=== PATIENT | male | born 1985 | race Hispanic/Latino ===

== ENCOUNTER 2017-09-10 09:50 | Emergency (ER) | payer OTHER ==
--- OUTSIDE RECORDS SUMMARY | 2017-09-10 09:52 | XMS REPORT | Clinical Summary ---
:1985 Author Organization [facility] Address [address] [place] [address] Phone Care Team Providers Name Role Phone Unavailable Primary Care Provider Unavailable Allergies No Known Allergies Current Medications No known medications Active Problems Problem Noted Date Bucket handle tear of lateral meniscus of right knee 12/28/2016 Primary localized osteoarthritis of right knee 12/28/2016 Encounters Date Type Specialty Care Team Description 02/16/2017 Hospital Encounter Taiwo Gonzalez MD 12/28/2016 Hospital Encounter Taiwo Gonzalez MD 12/28/2016 Procedure Pass 12/28/2016 Surgery Taiwo Gonzalez ARTHROSCOPY,KNEE MD Joshua MENISCECTOMY 12/27/2016 Anesthesia Event Mat Mobley MD 11/30/2016 Procedure Pass 11/30/2016 Surgery Taiwo Gonzalez ARTHROSCOPYWALTER MD MENISCECTOMY after 09/09/2016 Social History Tobacco Use Types Packs/Day Years Used Date Never Smoker Smokeless Tobacco: Never Used Alcohol Use Drinks/Week oz/Week Comments Yes occasiona; Sex Assigned at Date Recorded Not on file Last Filed Vital Signs Vital Sign Reading Time Taken Blood Pressure 136/65 12/28/2016 9:55 AM CDT Pulse 111 12/28/2016 9:55 AM CDT Temperature 36.3 C (97.4 F) 12/28/2016 9:55 AM CDT Respiratory Rate 18 12/28/2016 9:55 AM CDT Oxygen Saturation 97% 12/28/2016 9:55 AM CDT Inhaled Oxygen Concentration - - Weight 107.5 kg (237 lb) 12/28/2016 6:41 AM CDT Height 180.3 cm (5' 11") 12/28/2016 6:41 AM CDT Body Mass Index 33.05 12/28/2016 6:41 AM CDT Plan of Treatment Not on file Procedures Procedure Name Priority Date/Time Associated Diagnosis Comments ARTHROSCOPY,KNEE 12/28/2016 9:20 AM Primary osteoarthritis of SYNOVECTOMY CDT right knee Special Needs (ARTHREX) ARTHROSCOPY,KNEE CHONDROPLASTY 12/28/2016 9:20 AM CDT Primary osteoarthritis of SHAVING right knee Special Needs (ARTHREX) ARTHROSCOPY,KNEE LOOSE/FOREIGN 12/28/2016 9:20 AM CDT Primary osteoarthritis of BODY right knee Special Needs (ARTHREX) ARTHROSCOPY,KNEE MENISCECTOMY 12/28/2016 9:20 AM CDT Primary osteoarthritis of right knee Special Needs (ARTHREX) after 09/09/2016 Results Not on fileafter 09/09/2016
[2017-09-10] MEDS ORDERED: TETRACAINE HCL 0.5% 2ML OPTH ONE (10:32)
[2017-09-10] MEDS ORDERED: FLUORESCEIN SODIUM 0.6 MG/WRAP ONE ×2 (10:32→11:08)
--- NOTE | 2017-09-10 11:23 | ER ---
Nurse's Notes [facility] Name: Huber Gibbs Age: 31 yrs Sex: Male : 1985 Arrival Date: 09/10/2017 Time: 09:54 Bed 13 Private MD: Ty Garvey R Diagnosis: Conjunctivitis-Allergic Presentation: 09/10 10:10 Presenting complaint: Patient states: Bilateral eye burning and itching after dust fell hb down while moving ceiling tiles yesterday. Transition of care: patient was not received from another setting of care. Onset of symptoms was September 09, 2017. Risk Assessment: Do you want to hurt yourself or someone else? Patient reports no desire to harm self or others. Initial Sepsis Screen: Does the patient meet any 2 criteria? No. Patient's initial sepsis screen is negative. Does the patient have a suspected source of infection? No. Patient's initial sepsis screen is negative. Care prior to arrival: None. 10:10 Method Of Arrival: Ambulatory hb 10:10 Acuity: LILY 4 hb Historical: - Allergies: 10:12 No Known Allergies; hb - Home Meds: 10:12 None [Active]; hb - PMHx: 10:12 None; hb - PSHx: 10:12 knee - right; hb - Immunization history:: Adult Immunizations up to date. - Social history:: Smoking status: Patient/guardian denies using tobacco. - Ebola Screening: : No symptoms or risks identified at this time. Screenin:36 Abuse screen: Denies threats or abuse. Denies injuries from another. Nutritional aj1 screening: No deficits noted. Tuberculosis screening: No symptoms or risk factors identified. 12:14 Fall Risk None identified. aj1 Assessment: 10:36 General: Appears in no apparent distress. comfortable, Behavior is calm, cooperative, aj1 appropriate for age. Pain: Complains of pain in right eye and left eye Quality of pain is described as burning. Neuro: Level of Consciousness is awake, alert, obeys commands, Oriented to person, place, time, situation. Cardiovascular: Patient's skin is warm and dry. Respiratory: Airway is patent Respiratory effort is even, unlabored, Respiratory pattern is regular, symmetrical. GI: No signs and/or symptoms were reported involving the gastrointestinal system. : No signs and/or symptoms were reported regarding the genitourinary system. EENT: Sclera/Cornea are reddened in outer aspect of conjuctiva of right eye, inner aspect of conjuctiva of right eye, outer aspect of conjuctiva of left eye and inner aspect of conjunctiva of left eye Reports eye pain to bilateral eyes. Derm: No signs and/or symptoms reported regarding the dermatologic system. Skin is pink, warm \T\ dry. normal. Musculoskeletal: No signs and/or symptoms reported regarding the musculoskeletal system. Circulation, motion, and sensation intact. 11:40 Reassessment: Patient appears in no apparent distress at this time. No changes from aj1 previously documented assessment. Patient and/or family updated on plan of care and expected duration. Pain level reassessed. Patient is alert, oriented x 3, equal unlabored respirations, skin warm/dry/pink. 12:12 Reassessment: Patient got approximately 100cc in NS flush with Delroy Lens when he said aj1 that he does not like it and would like to stop. Patient was offered to re-numb eye and try again but patient declines. Notified GERALD Garber. OK to discharge patient. Vital Signs: 10:11 BP 146 / 69; Pulse 66; Resp 16; Temp 98.2; Pulse Ox 100% on R/A; Weight 112.49 kg; hb Height 5 ft. 11 in. (180.34 cm); Pain 7/10; 10:11 Body Mass Index 34.59 (112.49 kg, 180.34 cm) hb Visual Acuity: 10:35 Left Eye Visual acuity 20/20, ; Right Eye Visual acuity 20/60, ; Without Lenses; aj1 Patient states that he always has poor vision in the right eye, he is suppose to wear glasses, but doesn't. States his vision appears to be within his normal ED Course: 09:54 Patient arrived in ED. mr 09:54 None, None is Private Physician. mr 09:54 Ty Garvey MD is Private Physician. mr 10:11 Triage completed. hb 10:12 Arm band placed on left wrist. hb 10:14 Tiago Danielson PA is PHCP. cp 10:15 Tiago Gurrola MD is Attending Physician. cp 10:16 Miriam Sharp, STEVE is Primary Nurse. hb 10:36 Patient has correct armband on for positive identification. Bed in low position. Call aj1 light in reach. Side rails up X 1. 10:36 No provider procedures requiring assistance completed. aj1 11:21 Oscar Whalen MD is Referral Physician. cp 12:15 Patient did not have IV access during this emergency room visit. aj1 Administered Medications: 11:15 Drug: Tetracaine Drops 0.5 % 1 drops {Note: by GERALD Garber.} Route: Ophthalmic; Site: [facility] both eyes; 12:19 Follow up: Response: No adverse reaction aj1 Outcome: 11:23 Discharge ordered by MD. cp 12:18 Discharged to home ambulatory. aj1 12:18 Condition: good 12:18 Discharge instructions given to patient, Instructed on discharge instructions, follow up and referral plans. medication usage, Demonstrated understanding of instructions, follow-up care, medications, Prescriptions given X 2. 12:20 Patient left the ED. aj1 Signatures: Amelia Smith, RN RN aj1 Richelle Katz Corey, PA PA cp Miriam Sharp RN RN hb
--- NOTE | 2017-09-10 11:23 | EDPHYS ---
Physician Documentation [facility] Name: Huber Gibbs Age: 31 yrs Sex: Male : 1985 Arrival Date: 09/10/2017 Time: 09:54 Bed 13 Private MD: Ty Garvey R ED Physician Tiago Gurrola HPI: 09/10 10:21 This 31 yrs old Male presents to ER via Ambulatory with complaints of Redness cp of Eye. 10:21 The patient is experiencing redness, burning pain, clear drainage. Onset: The cp symptoms/episode began/occurred this morning. Duration: the symptoms are continuous. Patient does not utilize any form of vision correction. 10:21 Patient reports he was moving ceiling tiles at work yesterday when he felt like dust cp got into left eye. Left eye started itching and became red with right eye now affected this morning. Denies use of contact lenses. Historical: - Allergies: 10:12 No Known Allergies; hb - Home Meds: 10:12 None [Active]; hb - PMHx: 10:12 None; hb - PSHx: 10:12 knee - right; hb - Immunization history:: Adult Immunizations up to date. - Social history:: Smoking status: Patient/guardian denies using tobacco. - Ebola Screening: : No symptoms or risks identified at this time. ROS: 10:25 Constitutional: Negative for body aches, chills, fever, poor PO intake. cp 10:25 Cardiovascular: Negative for chest pain, palpitations, and edema, Respiratory: Negative cp for shortness of breath, cough, wheezing, and pleuritic chest pain, Abdomen/GI: Negative for abdominal pain, nausea, vomiting, diarrhea, and constipation. 10:25 Eyes: Positive for foreign body sensation, itching, redness, of the left eye and right eye, clear drainage, Negative for visual disturbance. 10:25 ENT: Negative for drainage from ear(s), ear pain, sore throat, difficulty swallowing, difficulty handling secretions, hoarseness. 10:25 Neck: Negative for pain with movement, pain at rest, stiffness, swelling, swollen nodes, tenderness. 10:25 Skin: Negative for cellulitis, rash. 10:25 Neuro: Negative for altered mental status, headache, weakness. 10:25 All other systems are negative. Exam: 11:00 Visual Acuity: I have reviewed the nursing documentation. cp 11:00 Constitutional: This is a well developed, well nourished patient who is awake, alert, cp and in no acute distress. Head/Face: Normocephalic, atraumatic. 11:00 Eyes: Periorbital structures: appear normal, Pupils: equal, round, and reactive to light and accomodation, Extraocular movements: intact throughout, Conjunctiva: mild injected. Corneas: abrasion, is not appreciated, foreign body, is not appreciated, a fluorescein strip employed to appreciate the findings, Sclera: no appreciated abnormality, Anterior chamber: normal, Lids and lashes: appear normal, bilaterally, Visual ayers: are intact. 11:00 ENT: External ear(s): are unremarkable, Ear canal(s): are normal, clear, TM's: Nose: is normal, Mouth: Lips: moist, Oral mucosa: pink and intact, moist, Posterior pharynx: is normal, airway is patent, no erythema, no exudate, Voice: is normal. 11:00 Neck: ROM/movement: is normal, is supple, without pain, no range of motions limitations, no meningismus, no nuchal rigidity, Lymph nodes: no appreciated lymphadenopathy. 11:00 Chest/axilla: Inspection: normal, Palpation: is normal, no crepitus, no tenderness. 11:00 Cardiovascular: Rate: normal, Rhythm: regular. 11:00 Respiratory: the patient does not display signs of respiratory distress, Respirations: normal, no use of accessory muscles, no retractions, no splinting, no tachypnea, labored breathing, is not present, Breath sounds: are clear throughout, no decreased breath sounds, no stridor, no wheezing. 11:00 Skin: cellulitis, is not appreciated, no rash present. Vital Signs: 10:11 BP 146 / 69; Pulse 66; Resp 16; Temp 98.2; Pulse Ox 100% on R/A; Weight 112.49 kg; hb Height 5 ft. 11 in. (180.34 cm); Pain 7/10; 10:11 Body Mass Index 34.59 (112.49 kg, 180.34 cm) hb Visual Acuity: 10:35 Left Eye Visual acuity 20/20, ; Right Eye Visual acuity 20/60, ; Without Lenses; aj1 Patient states that he always has poor vision in the right eye, he is suppose to wear glasses, but doesn't. States his vision appears to be within his normal MDM: 10:16 Patient medically screened. 11:20 Data reviewed: vital signs, nurses notes, and as a result, I will discharge patient. 09/10 10:18 Order name: Visual Acuity; Complete Time: 10:34 cp 09/10 10:18 Order name: Eye Tray; Complete Time: 10:34 09/10 10:18 Order name: Fluoresene Opth strip; Complete Time: 10:34 09/10 11:24 Order name: Misc. Order: mac lense with LR 1 liter to left eye; Complete Time: 12:12 cp Administered Medications: 11:15 Drug: Tetracaine Drops 0.5 % 1 drops {Note: by GERALD Garber.} Route: Ophthalmic; Site: [facility] both eyes; 12:19 Follow up: Response: No adverse reaction aj1 Disposition: 09/10/17 11:23 Discharged to Home. Impression: Conjunctivitis - Allergic. - Condition is Stable. - Discharge Instructions: Allergic Conjunctivitis. - Prescriptions for Zyrtec 10 mg Oral Tablet - take 1 tablet by ORAL route once daily As needed; 20 tablet. Pataday 0.2 % Ophthalmic drops - instill 1 drop by OPHTHALMIC route once daily for 7 days; 1 bottle. - Medication Reconciliation Form, Thank You Letter, Antibiotic Education, Prescription Opioid Use form. - Follow up: Oscar Whalen MD; When: 1 - 2 days; Reason: Recheck today's complaints. - Problem is new. - Symptoms are unchanged. Addendum: 09/12/2017 08:40 Co-signature as Attending Physician, Tiago Gurrola MD I agree with the assessment and c plan of care. Signatures: Amelia Smith RN RN aj1 Tiago Gurrola MD MD cha Page, Corey, PA PA cp Baxter, Heather RN RN Corrections: (The following items were deleted from the chart) 09/10 12:20 11:23 09/10/2017 11:23 Discharged to Home. Impression: Conjunctivitis - Allergic. aj1 Condition is Stable. Forms are Medication Reconciliation Form, Thank You Letter, Antibiotic Education, Prescription Opioid Use. Follow up: Oscar Whalen; When: 1 - 2 days; Reason: Recheck today's complaints. Problem is new. Symptoms are unchanged. cp
[2017-09-10] MEDS ORDERED: NA CHLORIDE 0.9% 1,000 ML ONE (11:47)
== END 2017-09-10 12:20 | disposition home or self-care (01) ==
LOC: ER 09:50
DX: H10.11 Acute atopic conjunctivitis, right eye (principal)
CPT/HCPCS: 99283; J7030

== ENCOUNTER 2019-04-11 11:20 | Emergency (ER) | payer OTHER, SELFPAY ==
--- NOTE | 2019-04-11 12:30 | EDPHYS ---
Physician Documentation [facility] Name: Huber Gibbs Age: 33 yrs Sex: Male : 1985 Arrival Date: 04/11/2019 Time: 11:24 Bed 12 Private MD: ED Physician Kenan Tavarez HPI: 04/11 13:46 This 33 yrs old Male presents to ER via Ambulatory with complaints of Sore kdr Throat, Ear Pain. 13:46 The patient presents with sore throat. The patient describes throat pain as constant, kdr intermittent, raw, scratchy. Onset: The symptoms/episode began/occurred gradually, yesterday. Severity of symptoms: At their worst the symptoms were moderate, in the emergency department the symptoms have improved, mildly. Modifying factors: The symptoms are alleviated by nothing, the symptoms are aggravated by fluids, foods, swallowing, Patient's oral intake status: good The patient has had contact with sick other child. The patient has not experienced similar symptoms in the past. The patient has not recently seen a physician. Historical: - Allergies: 11:37 No Known Allergies; iw - Home Meds: 11:37 None [Active]; iw - PMHx: 11:37 None; iw - PSHx: 11:37 knee - right; iw - Immunization history:: Adult Immunizations not up to date. - Social history:: Smoking status: Patient/guardian denies using tobacco. - Ebola Screening: : Patient negative for fever greater than or equal to 101.5 degrees Fahrenheit, and additional compatible Ebola Virus Disease symptoms Patient denies exposure to infectious person Patient denies travel to an Ebola-affected area in the 21 days before illness onset No symptoms or risks identified at this time. ROS: 13:46 Constitutional: Negative for chills, and weight loss - has had fever to 103 yesterday kdr Eyes: Negative for injury, pain, redness, and discharge, Neck: Negative for injury, pain, and swelling, Cardiovascular: Negative for chest pain, palpitations, and edema, Respiratory: Negative for shortness of breath, cough, wheezing, and pleuritic chest pain, Abdomen/GI: Negative for abdominal pain, nausea, vomiting, diarrhea, and constipation, Back: Negative for injury and pain, : Negative for injury, bleeding, discharge, and swelling, MS/Extremity: Negative for injury and deformity, Skin: Negative for injury, rash, and discoloration, Neuro: Negative for headache, weakness, numbness, tingling, and seizure activity. Psych: Negative for depression, anxiety, suicide ideation, homicidal ideation, and hallucinations, Allergy/Immunology: Negative for hives, rash, and allergies, Endocrine: Negative for neck swelling, polydipsia, polyuria, polyphagia, and marked weight changes, Hematologic/Lymphatic: Negative for swollen nodes, abnormal bleeding, and unusual bruising. 13:46 ENT: Positive for sore throat. Exam: 13:46 Constitutional: This is a well developed, well nourished patient who is awake, alert, kdr and in no acute distress. Head/Face: Normocephalic, atraumatic. Eyes: Pupils equal round and reactive to light, extra-ocular motions intact. Lids and lashes normal. Conjunctiva and sclera are non-icteric and not injected. Cornea within normal limits. Periorbital areas with no swelling, redness, or edema. Neck: Trachea midline, no thyromegaly or masses palpated, and no cervical lymphadenopathy. Supple, full range of motion without nuchal rigidity, or vertebral point tenderness. No Meningismus. Chest/axilla: Normal chest wall appearance and motion. Nontender with no deformity. No lesions are appreciated. Cardiovascular: Regular rate and rhythm with a normal S1 and S2. No gallops, murmurs, or rubs. Normal PMI, no JVD. No pulse deficits. Respiratory: Lungs have equal breath sounds bilaterally, clear to auscultation and percussion. No rales, rhonchi or wheezes noted. No increased work of breathing, no retractions or nasal flaring. Abdomen/GI: Soft, non-tender, with normal bowel sounds. No distension or tympany. No guarding or rebound. No evidence of tenderness throughout. Back: No spinal tenderness. No costovertebral tenderness. Full range of motion. Skin: Warm, dry with normal turgor. Normal color with no rashes, no lesions, and no evidence of cellulitis. MS/ Extremity: Pulses equal, no cyanosis. Neurovascular intact. Full, normal range of motion. Neuro: Awake and alert, GCS 15, oriented to person, place, time, and situation. Cranial nerves II-XII grossly intact. Motor strength 5/5 in all extremities. Sensory grossly intact. Cerebellar exam normal. Normal gait. Psych: Awake, alert, with orientation to person, place and time. Behavior, mood, and affect are within normal limits. 13:46 ENT: Mouth: Posterior pharynx: erythema, that is mild, that is moderate, exudate, is not appreciated. Vital Signs: 11:37 BP 138 / 86; Pulse 101; Resp 18; Temp 100.3; Pulse Ox 100% on R/A; Weight 113.4 kg; iw Height 6 ft. 0 in. (182.88 cm); Pain 4/10; 11:37 Body Mass Index 33.91 (113.40 kg, 182.88 cm) iw MDM: 12:30 Patient medically screened. kdr 13:46 Data reviewed: vital signs, nurses notes, lab test result(s). Counseling: I had a kdr detailed discussion with the patient and/or guardian regarding: the historical points, exam findings, and any diagnostic results supporting the discharge/admit diagnosis, lab results, the need for outpatient follow up. 04/11 11:38 Order name: Strep; Complete Time: 12:16 iw Administered Medications: No medications were administered Disposition: 04/11/19 12:30 Discharged to Home. Impression: Streptococcal pharyngitis. - Condition is Stable. - Discharge Instructions: Strep Throat, [id number]. - Prescriptions for Amoxicillin 500 mg Oral Capsule - take 1 capsule by ORAL route every 8 hours for 10 days; 30 tablet. Tramadol 50 mg Oral Tablet - take 1 tablet by ORAL route every 8 hours as needed; 12 tablet. - Medication Reconciliation Form, Thank You Letter, Work release form form. - Follow up: Private Physician; When: 2 - 3 days; Reason: If symptoms return, Further diagnostic work-up, Recheck today's complaints, Continuance of care, Re-evaluation by your physician. - Problem is new. - Symptoms have improved. Signatures: Dispatcher [employer] EDMS Kenan Tavarez MD MD kdr Francine Blanchard RN RN iw Corrections: (The following items were deleted from the chart) 12:35 12:30 04/11/2019 12:30 Discharged to Home. Impression: Streptococcal pharyngitis. iw Condition is Stable. Forms are Medication Reconciliation Form, Thank You Letter, Antibiotic Education, Prescription Opioid Use. Follow up: Private Physician; When: 2 - 3 days; Reason: If symptoms return, Further diagnostic work-up, Recheck today's complaints, Continuance of care, Re-evaluation by your physician. Problem is new. Symptoms have improved. kdr
--- NOTE | 2019-04-11 12:30 | ER ---
Nurse's Notes [facility] Name: Huber Gibbs Age: 33 yrs Sex: Male : 1985 Arrival Date: 04/11/2019 Time: 11:24 Bed 12 Private MD: Diagnosis: Streptococcal pharyngitis Presentation: 04/11 11:36 Presenting complaint: Patient states: yesterday had body aches, sore throat and bad iw taste in mouth, +fever last night 103. Transition of care: patient was not received from another setting of care. Onset of symptoms was April 10, 2019. Risk Assessment: Do you want to hurt yourself or someone else? Patient reports no desire to harm self or others. Initial Sepsis Screen: Does the patient meet any 2 criteria? No. Patient's initial sepsis screen is negative. Does the patient have a suspected source of infection? No. Patient's initial sepsis screen is negative. Care prior to arrival: None. 11:36 Method Of Arrival: Ambulatory iw 11:36 Acuity: LILY 4 iw Historical: - Allergies: 11:37 No Known Allergies; iw - Home Meds: 11:37 None [Active]; iw - PMHx: 11:37 None; iw - PSHx: 11:37 knee - right; iw - Immunization history:: Adult Immunizations not up to date. - Social history:: Smoking status: Patient/guardian denies using tobacco. - Ebola Screening: : Patient negative for fever greater than or equal to 101.5 degrees Fahrenheit, and additional compatible Ebola Virus Disease symptoms Patient denies exposure to infectious person Patient denies travel to an Ebola-affected area in the 21 days before illness onset No symptoms or risks identified at this time. Screenin:49 Abuse screen: Denies threats or abuse. Denies injuries from another. Nutritional iw screening: No deficits noted. Tuberculosis screening: No symptoms or risk factors identified. Fall Risk None identified. Assessment: 11:48 General: Appears in no apparent distress. Behavior is calm, cooperative. General: iw Reports fever for 12-24 hours. Pain: Complains of pain in throat. Neuro: Level of Consciousness is awake, alert, obeys commands, Oriented to person, place, time, situation, Moves all extremities. Full function. Cardiovascular: Patient's skin is warm and dry. Respiratory: Airway is patent Respiratory effort is even, unlabored, Breath sounds are clear bilaterally. EENT: Throat is reddened bilaterally with gag reflex present, Reports pain when swallowing. Derm: Skin is intact, is healthy with good turgor. Musculoskeletal: Range of motion: intact in all extremities. Vital Signs: 11:37 BP 138 / 86; Pulse 101; Resp 18; Temp 100.3; Pulse Ox 100% on R/A; Weight 113.4 kg; iw Height 6 ft. 0 in. (182.88 cm); Pain 4/10; 11:37 Body Mass Index 33.91 (113.40 kg, 182.88 cm) iw ED Course: 11:24 Patient arrived in ED. mr 11:27 Kenan Tavarez MD is Attending Physician. kdr 11:36 Triage completed. iw 11:37 Francine Blanchard, RN is Primary Nurse. iw 11:37 Arm band placed on. iw 11:48 Patient has correct armband on for positive identification. iw 11:49 No provider procedures requiring assistance completed. Patient did not have IV access iw during this emergency room visit. Administered Medications: No medications were administered Outcome: 12:30 Discharge ordered by . kdr 12:34 Discharged to home ambulatory, with family. iw 12:34 Condition: good 12:34 Discharge instructions given to patient, family, Instructed on discharge instructions, follow up and referral plans. medication usage, Demonstrated understanding of instructions, follow-up care, medications, Prescriptions given X 2. 12:35 Patient left the ED. iw Signatures: Kenan Tavarez MD MD [facility] mr Francine Blanchard, RN RN iw
[2019-04-11 12:53] VITALS: BP 138/86; TEMP 100.3; O2SAT 100
== END 2019-04-11 12:35 | disposition home or self-care (01) ==
LOC: ER 11:20
DX: J02.0 Streptococcal pharyngitis (principal)
CPT/HCPCS: 87081; 99282

== ENCOUNTER 2022-11-23 14:48 | Emergency (ER) | payer SELFPAY ==
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
[2022-11-23 15:23] VITALS: TEMP 97.5; O2SAT 100
[2022-11-23 15:24] VITALS: BP 108/76
== END 2022-11-23 15:18 | disposition home or self-care (01) ==
LOC: ER 14:48
DX: T23.101A Burn of first degree of right hand, unspecified site, initial encounter (principal); T31.0 Burns involving less than 10% of body surface
CPT/HCPCS: 99282